=== PATIENT | female | born 1960 | race Caucasian/White ===

== ENCOUNTER 2021-12-09 10:24 | Emergency (ER) | payer MEDICARE ==
[2021-12-09] MEDS ORDERED: Cyclobenzaprine 10 MG Tab PO ONE (11:18)
[2021-12-09] MEDS ORDERED: Ketorolac 30 MG/ML SDV IM ONE (11:18)
[2021-12-09] MEDS ORDERED: Acetaminophen/HYDROcodone 325-5 MG Tab PO ONE (12:18)
== END 2021-12-09 12:33 | disposition home or self-care (01) ==
LOC: JP.ED 10:24
DX: M16.11 Unilateral primary osteoarthritis, right hip (principal); M62.838 Other muscle spasm; E78.00 Pure hypercholesterolemia, unspecified; I10 Essential (primary) hypertension; E11.9 Type 2 diabetes mellitus without complications; Z79.899 Other long term (current) drug therapy; Z79.84 Long term (current) use of oral hypoglycemic drugs
CPT/HCPCS: 73502-26-RT; 73502-RT; 81001; 96372; 99282; 99283-25; A9270-GY; J1885